=== PATIENT | female | born 1980 | race Two or more races ===

== ENCOUNTER 2023-11-24 13:38 | Emergency (ER) | payer SELFPAY ==
[~2023-11-24] VITALS: Ht 165.1 cm; Wt 70.0 kg
[2023-11-24 13:39] VITALS: BP 188/94; PULSE 148; RESP 18; TEMP 98.5; O2SAT 99
== END 2023-11-24 14:36 | disposition left against medical advice (07) ==
LOC: ER 14:19
DX: G92.9 Unspecified toxic encephalopathy (principal)
CPT/HCPCS: 99283

== ENCOUNTER 2024-09-16 07:26 | Emergency (ER) | payer MEDICAID ==
[~2024-09-16] VITALS: Ht 165.1 cm; Wt 65.0 kg
[2024-09-16 07:27] VITALS: O2SAT 99
[2024-09-16] MEDS: ACETAMINOPHEN 325MG TABLET PO ONE (08:00)
[2024-09-16] MEDS ORDERED: CEPH500T MT (10:12)
[2024-09-16] MEDS ORDERED: SULF1TAB48 MT (10:12)
[2024-09-16 10:33] VITALS: BP 115/78; PULSE 85; RESP 18; TEMP 36.9; O2SAT 99
== END 2024-09-16 10:40 | disposition home or self-care (01) ==
LOC: ER 07:26
DX: M79.89 Other specified soft tissue disorders (principal); M79.605 Pain in left leg
CPT/HCPCS: 73590; 73630; 93971; 99284

== ENCOUNTER 2024-09-18 13:45 | Emergency (ER) | payer MEDICAID ==
[~2024-09-18] VITALS: Ht 167.6 cm; Wt 75.0 kg
[~2024-09-18 13:45] MED LIST: CEPH500T MT; SULF1TAB48 MT
[2024-09-18 13:50] VITALS: BP 121/82; PULSE 99; RESP 18; TEMP 36.9; O2SAT 100
== END 2024-09-18 15:00 | disposition left against medical advice (07) ==
LOC: ER 13:50
DX: M79.606 Pain in leg, unspecified (principal); Z53.21 Procedure and treatment not carried out due to patient leaving prior to being seen by health care provider